=== PATIENT | male | born 1960 | race African-American/Black ===

== ENCOUNTER 2019-07-17 22:37 | Emergency (ER) | payer MEDICARE, MEDICAID ==
[~2019-07-17] VITALS: Ht 180.3 cm; Wt 83.9 kg
[2019-07-18 00:39] LABS: Basophils # (auto) 0 uL; Basophils % (auto) 1.1 % (0.0-2.0); Eosinophils # (auto) 0.1 uL; Eosinophils % (auto) 1.7 % (0.0-7.0); Hematocrit 42.8 % (41.0-53.0); Hemoglobin 14.3 g/dL (13.5-17.5); Lymphocytes # (auto) 1.7 uL; Lymphocytes % (auto) 38.5 % (10.0-50.0); Mean Corpuscular Hemoglobin 34.7 pg (28.0-32.0); Mean Corpuscular Hgb Conc. 33.3 g/dL (32.0-36.0); Mean Corpuscular Volume 104.3 fL (80.0-100.0); Monocytes # (auto) 0.5 uL; Monocytes % (auto) 12.4 % (0.0-12.0); Neutrophils % (auto) 46.3 % (37.0-80.0); Nucleated Red Blood Cells % 0.4 %; Platelet Count (auto) 142 10^3/uL (140-450); Red Cell Distribution Width 14.7 % (11.8-14.3); White Blood Cell 4.3 10^3/uL (4.4-10.8)
[2019-07-18 01:02] LABS: Albumin 3.5 g/dL (3.4-5.0); BUN/Creatinine Ratio 19.9; Potassium 5.3 mmol/L (3.5-5.1)
[2019-07-18 01:04] LABS: Bilirubin, Total 1.1 mg/dL (0.2-1.0); Total Protein 7.1 g/dL (6.4-8.2)
[2019-07-18 01:40] VITALS: BP 116/89
== END 2019-07-18 02:40 | disposition home or self-care (01) ==
LOC: ER 22:39
DX: J18.1 Lobar pneumonia, unspecified organism (principal); E87.6 Hypokalemia; I11.0 Hypertensive heart disease with heart failure; I50.9 Heart failure, unspecified; Z76.0 Encounter for issue of repeat prescription
CPT/HCPCS: 36415; 71046; 80053; 85025

== ENCOUNTER 2019-12-28 17:03 | Inpatient (IN) | payer MEDICARE, MEDICAID ==
[~2019-12-28] VITALS: Ht 180.3 cm; Wt 88.5 kg
[2019-12-28] MEDS ORDERED: FUROSEMIDE 40 MG/4 ML VIAL IV ONE (17:30)
[2019-12-28] MEDS ORDERED: ASPirin 81 mg TAB PO ONE (17:30)
[2019-12-28 18:35] LABS: Basophils # (auto) 0.1 10 ^3/uL (0-0.2); Basophils % (auto) 1.4 % (0.0-2.0); Eosinophils # (auto) 0.1 10 ^3/uL (0-0.8); Eosinophils % (auto) 1.6 % (0.0-7.0); Hematocrit 43.5 % (41.0-53.0); Hemoglobin 14.3 g/dL (13.5-17.5); Lymphocytes # (auto) 1.2 10 ^3/uL (0.4-5.4); Lymphocytes % (auto) 31.2 % (10.0-50.0); Mean Corpuscular Hemoglobin 33.3 pg (28.0-32.0); Mean Corpuscular Hgb Conc. 32.9 g/dL (32.0-36.0); Mean Corpuscular Volume 101.1 fL (80.0-100.0); Monocytes # (auto) 0.5 10 ^3/uL (0-1.3); Monocytes % (auto) 13.9 % (0.0-12.0); Neutrophils % (auto) 51.9 % (37.0-80.0); Nucleated Red Blood Cells % 0.2 %; Platelet Count (auto) 147 10^3/uL (140-450); Red Cell Distribution Width 13.9 % (11.8-14.3); White Blood Cell 3.8 10^3/uL (4.4-10.8)
[2019-12-28 18:54] LABS: Albumin 3.8 g/dL (3.4-5.0); Anion Gap 10 (5-15); Blood Urea Nitrogen 24 mg/dL (7-18); Calcium 8.9 mg/dL (8.5-10.1); Carbon Dioxide 25 mmol/L (21-32); Chloride 106 mmol/L (98-107); Glucose 103 mg/dL (74-106); Potassium 3.7 mmol/L (3.5-5.1); Sodium 141 mmol/L (136-145)
[2019-12-28 18:59] LABS: Alanine Aminotransferase 32 U/L (16-61); Alkaline Phosphatase 99 U/L (45-117); Aspartate Aminotransferase 37 U/L (15-37); BUN/Creatinine Ratio 15.4; Bilirubin, Total 1.7 mg/dL (0.2-1.0); GFR African American 58 mL/min; GFR Non-African American 48 mL/min; Total Protein 7.2 g/dL (6.4-8.2)
[2019-12-28] MEDS ORDERED: NITROGLYCERIN 0.4 MG SL TAB SL PRN (21:30)
[2019-12-28] MEDS ORDERED: ONDANSETRON HCL 4 MG/2 ML VIAL IV PRN (21:30)
[2019-12-28] MEDS ORDERED: MORPHINE SULF INJ 2 MG/ML SYRINGE 1ML IV PRN (21:30)
[2019-12-28] MEDS: FUROSEMIDE 40 MG/4 ML VIAL IV SCH (22:00)
[2019-12-28 23:06] VITALS: BP 116/95
[2019-12-28] MEDS: CARVEDILOL 3.125 MG TAB PO SCH (23:11)
[2019-12-28] MEDS: ATORVASTATIN 20 MG TAB PO SCH (23:12)
[2019-12-28] MEDS: ENOXAPARIN SOD 100 MG/1 ML SYRINGE SC SCH (23:12)
[2019-12-29] VITALS (7 sets, daily range): BP systolic 94–117; BP diastolic 54–87
[2019-12-29] MEDS: ACETAMINOPHEN 325 MG TAB PO PRN ×3 (02:08→22:30)
[2019-12-29] MEDS ORDERED: ALBU108A5 (05:17)
[2019-12-29] MEDS ORDERED: DIGO0.25 (05:17)
[2019-12-29] MEDS ORDERED: LORA-154 (05:17)
[2019-12-29] MEDS ORDERED: SPIR25TA8 (05:17)
[2019-12-29] MEDS ORDERED: HCTZ25T (05:17)
[2019-12-29] MEDS ORDERED: FURO40TA4 (05:17)
[2019-12-29] MEDS ORDERED: ENAL20TA (05:17)
[2019-12-29] MEDS ORDERED: CARV12.544 (05:17)
[2019-12-29] MEDS: ALBUTEROL SULF 2.5 MG/0.5ML(0.5%) NEB SOLN NEB PRN ×2 (07:36→16:36)
[2019-12-29] MEDS: IPRATROPIUM BROM 0.5 MG/2.5ML INH SOL NEB PRN ×2 (07:36→16:36)
[2019-12-29 09:16] LABS: Basophils # (auto) 0.1 10 ^3/uL (0-0.2); Basophils % (auto) 2.9 % (0.0-2.0); Eosinophils # (auto) 0.1 10 ^3/uL (0-0.8); Eosinophils % (auto) 2.7 % (0.0-7.0); Hematocrit 42.6 % (41.0-53.0); Hemoglobin 13.9 g/dL (13.5-17.5); Lymphocytes # (auto) 0.9 10 ^3/uL (0.4-5.4); Lymphocytes % (auto) 27.5 % (10.0-50.0); Mean Corpuscular Hemoglobin 33.1 pg (28.0-32.0); Mean Corpuscular Hgb Conc. 32.6 g/dL (32.0-36.0); Mean Corpuscular Volume 101.5 fL (80.0-100.0); Monocytes # (auto) 0.4 10 ^3/uL (0-1.3); Neutrophils # (auto) 1.8 10 ^3/uL (1.6-8.6); Neutrophils % (auto) 53.9 % (37.0-80.0); Nucleated Red Blood Cells % 0.2 %; Platelet Count (auto) 130 10^3/uL (140-450); White Blood Cell 3.4 10^3/uL (4.4-10.8)
[2019-12-29 09:35] LABS: Calcium 8.6 mg/dL (8.5-10.1); Magnesium 1.7 mg/dL (1.6-2.6); Potassium 3.5 mmol/L (3.5-5.1)
[2019-12-29 09:37] LABS: BUN/Creatinine Ratio 15.9
[2019-12-29] MEDS: ENOXAPARIN SOD 100 MG/1 ML SYRINGE SC SCH ×2 (10:00→22:11)
[2019-12-29] MEDS: FUROSEMIDE 40 MG/4 ML VIAL IV SCH ×2 (10:08→22:10)
[2019-12-29] MEDS: DOCUSATE SOD 100 MG CAP PO SCH (10:08)
[2019-12-29] MEDS: B-COMPLEX W/ C & FOLIC ACID(NEPHROVITE TAB) PO SCH (10:08)
[2019-12-29] MEDS: ASPirin 81 mg TAB PO SCH (10:08)
[2019-12-29] MEDS: CARVEDILOL 3.125 MG TAB PO SCH ×2 (10:09→22:11)
[2019-12-29] MEDS: LISINOPRIL 10 MG TAB PO SCH (10:09)
[2019-12-29] MEDS: CLOPIDOGREL BISULFATE 75 MG TAB PO SCH (10:10)
[2019-12-29] MEDS ORDERED: HCTZ 25 MG TAB PO ONE (11:45)
[2019-12-29] MEDS ORDERED: DIGOXIN 0.25 MG TAB PO ONE (11:45)
[2019-12-29] MEDS: ATORVASTATIN 20 MG TAB PO SCH (22:11)
[2019-12-29] MEDS: guaiFENesin-DM 100/10mg/5ml SYR PO PRN (22:11)
[2019-12-30] MEDS: guaiFENesin-DM 100/10mg/5ml SYR PO PRN ×3 (04:14→23:09)
[2019-12-30 05:00] VITALS: BP 110/79
[2019-12-30 09:00] VITALS: BP 108/86
[2019-12-30] MEDS: FUROSEMIDE 40 MG/4 ML VIAL IV SCH ×2 (09:42→21:03)
[2019-12-30] MEDS: ASPirin 81 mg TAB PO SCH (09:42)
[2019-12-30] MEDS: SPIRONOLACTONE 25 MG TAB PO SCH (09:42)
[2019-12-30] MEDS: DOCUSATE SOD 100 MG CAP PO SCH (09:43)
[2019-12-30] MEDS: CARVEDILOL 3.125 MG TAB PO SCH ×2 (09:43→21:02)
[2019-12-30] MEDS: POTASSIUM CHL 20 Meq TABLET PO SCH (09:44)
[2019-12-30] MEDS: CLOPIDOGREL BISULFATE 75 MG TAB PO SCH (09:45)
[2019-12-30] MEDS: DIGOXIN 0.25 MG TAB PO SCH (09:45)
[2019-12-30] MEDS: ENOXAPARIN SOD 100 MG/1 ML SYRINGE SC SCH ×2 (09:45→21:03)
[2019-12-30] MEDS: B-COMPLEX W/ C & FOLIC ACID(NEPHROVITE TAB) PO SCH (09:45)
[2019-12-30] MEDS: LISINOPRIL 10 MG TAB PO SCH (09:45)
[2019-12-30] MEDS ORDERED: HCTZ 25 MG TAB PO SCH (10:00)
[2019-12-30 13:00] VITALS: BP 108/65
[2019-12-30] MEDS ORDERED: ACETYLCYSTEINE ORAL for CIN 20%(200MG/ML) 4ML PO ONE (13:00)
[2019-12-30 17:23] VITALS: BP 109/75
[2019-12-30] MEDS: IPRATROPIUM BROM 0.5 MG/2.5ML INH SOL NEB PRN (19:41)
[2019-12-30] MEDS: ALBUTEROL SULF 2.5 MG/0.5ML(0.5%) NEB SOLN NEB PRN (19:41)
[2019-12-30] MEDS: ATORVASTATIN 20 MG TAB PO SCH (21:02)
[2019-12-30] MEDS: ACETYLCYSTEINE ORAL for CIN 20%(200MG/ML) 4ML PO SCH (21:16)
[2019-12-30 22:00] VITALS: BP 104/84
[2019-12-30] MEDS: ACETAMINOPHEN 325 MG TAB PO PRN (23:09)
[2019-12-31] VITALS (7 sets, daily range): BP systolic 107–142; BP diastolic 64–91
[2019-12-31 06:10] LABS: Basophils # (auto) 0 10 ^3/uL (0-0.2); Basophils % (auto) 1.1 % (0.0-2.0); Eosinophils # (auto) 0.1 10 ^3/uL (0-0.8); Eosinophils % (auto) 2.9 % (0.0-7.0); Hematocrit 40.7 % (41.0-53.0); Hemoglobin 13.3 g/dL (13.5-17.5); Lymphocytes # (auto) 1.1 10 ^3/uL (0.4-5.4); Lymphocytes % (auto) 30.1 % (10.0-50.0); Mean Corpuscular Hgb Conc. 32.8 g/dL (32.0-36.0); Mean Corpuscular Volume 100.7 fL (80.0-100.0); Monocytes # (auto) 0.6 10 ^3/uL (0-1.3); Monocytes % (auto) 16.1 % (0.0-12.0); Neutrophils # (auto) 1.7 10 ^3/uL (1.6-8.6); Neutrophils % (auto) 49.8 % (37.0-80.0); Nucleated Red Blood Cells % 0.2 %; Platelet Count (auto) 134 10^3/uL (140-450); Red Blood Cells 4.04 10^6/uL (4.5-5.90); Red Cell Distribution Width 14.1 % (11.8-14.3); White Blood Cell 3.5 10^3/uL (4.4-10.8)
[2019-12-31 06:26] LABS: INR 1.49 (0.9-1.15); Partial Thromboplastin Time 33.5 sec (23.64-32.05)
[2019-12-31 06:37] LABS: Potassium 3.7 mmol/L (3.5-5.1)
[2019-12-31 06:46] LABS: BUN/Creatinine Ratio 17.4; Calcium 8.9 mg/dL (8.5-10.1)
[2019-12-31] MEDS: ENOXAPARIN SOD 100 MG/1 ML SYRINGE SC SCH (08:20)
[2019-12-31] MEDS: ACETYLCYSTEINE ORAL for CIN 20%(200MG/ML) 4ML PO SCH ×2 (09:37→21:36)
[2019-12-31] MEDS: DIGOXIN 0.25 MG TAB PO SCH (09:39)
[2019-12-31] MEDS: POTASSIUM CHL 20 Meq TABLET PO SCH (09:39)
[2019-12-31] MEDS: ASPirin 81 mg TAB PO SCH (09:39)
[2019-12-31] MEDS: B-COMPLEX W/ C & FOLIC ACID(NEPHROVITE TAB) PO SCH (09:39)
[2019-12-31] MEDS: CLOPIDOGREL BISULFATE 75 MG TAB PO SCH (09:39)
[2019-12-31] MEDS: CARVEDILOL 3.125 MG TAB PO SCH ×2 (09:40→21:35)
[2019-12-31] MEDS: DOCUSATE SOD 100 MG CAP PO SCH (09:44)
[2019-12-31] MEDS: SPIRONOLACTONE 25 MG TAB PO SCH (09:46)
[2019-12-31] MEDS: FUROSEMIDE 40 MG/4 ML VIAL IV SCH ×2 (09:47→17:25)
[2019-12-31] MEDS ORDERED: LIDOCAINE 2%HCL (LOCAL ANESTH.) INJ 20ML MDV ONE (13:51)
[2019-12-31] MEDS ORDERED: IOHEXOL 350 MG/ML 100ML IJ ONE (13:51)
[2019-12-31] MEDS ORDERED: ANGIOMAX 250 MG VIAL IV ONE (13:55)
[2019-12-31] MEDS ORDERED: fentaNYL CITRATE 100 MCG/2 ML VL ONE (13:56)
[2019-12-31] MEDS ORDERED: SODIUM CHL 0.9% 0 ML ONE (13:56)
[2019-12-31] MEDS ORDERED: MIDAZOLAM HCL 1MG/1ML-2 ML VIAL ONE (13:56)
[2019-12-31] MEDS ORDERED: ACETAMINOPHEN 500 MG TAB PO PRN (14:45)
[2019-12-31] MEDS ORDERED: ONDANSETRON HCL 4 MG/2 ML VIAL IV PRN (14:45)
[2019-12-31] MEDS: HYDROcodone-ACET 5/325MG TAB PO PRN (18:33)
[2019-12-31] MEDS: ATORVASTATIN 20 MG TAB PO SCH (21:35)
[2019-12-31] MEDS: SODIUM CHLOR 0.9% PF (SALINE LOCK) 10ML VIAL/SYR IV SCH (21:36)
[2019-12-31] MEDS: guaiFENesin-DM 100/10mg/5ml SYR PO PRN (23:08)
[2020-01-01] MEDS: HYDROcodone-ACET 5/325MG TAB PO PRN (00:20)
[2020-01-01 05:00] VITALS: BP 100/49
[2020-01-01] MEDS: SODIUM CHLOR 0.9% PF (SALINE LOCK) 10ML VIAL/SYR IV SCH ×2 (05:34→14:00)
[2020-01-01] MEDS: FUROSEMIDE 40 MG/4 ML VIAL IV SCH (05:34)
[2020-01-01 09:07] VITALS: BP 120/77
[2020-01-01] MEDS: CARVEDILOL 3.125 MG TAB PO SCH (10:07)
[2020-01-01] MEDS: B-COMPLEX W/ C & FOLIC ACID(NEPHROVITE TAB) PO SCH (10:07)
[2020-01-01] MEDS: DIGOXIN 0.25 MG TAB PO SCH (10:07)
[2020-01-01] MEDS: DOCUSATE SOD 100 MG CAP PO SCH (10:08)
[2020-01-01] MEDS: SPIRONOLACTONE 25 MG TAB PO SCH (10:08)
[2020-01-01] MEDS: POTASSIUM CHL 20 Meq TABLET PO SCH (10:08)
[2020-01-01 12:05] LABS: BUN/Creatinine Ratio 16.3; Potassium 3.7 mmol/L (3.5-5.1)
[2020-01-01 13:49] VITALS: BP 114/85
== END 2020-01-01 16:50 | disposition home or self-care (01) | DRG 286 ==
LOC: ER 17:03 → TELE 17:04 → TELE-CENTR 12-29 02:22
PROVIDERS: ADMIT Hospitalist; ATTEND Family Medicine
PROC: B2111ZZ Fluoroscopy of Multiple Coronary Arteries using Low Osmolar Contrast (ICD-10-PCS; principal; 2019-12-31)
PROC: 4A023N7 Measurement of Cardiac Sampling and Pressure, Left Heart, Percutaneous Approach (ICD-10-PCS; 2019-12-31)
PROC: B2151ZZ Fluoroscopy of Left Heart using Low Osmolar Contrast (ICD-10-PCS; 2019-12-31)
DX: I11.0 Hypertensive heart disease with heart failure (principal); I26.99 Other pulmonary embolism without acute cor pulmonale; N17.9 Acute kidney failure, unspecified; D68.69 Other thrombophilia; I50.23 Acute on chronic systolic (congestive) heart failure; D53.9 Nutritional anemia, unspecified; E78.5 Hyperlipidemia, unspecified; F12.90 Cannabis use, unspecified, uncomplicated; Z20.828 Contact with and (suspected) exposure to other viral communicable diseases; Z79.01 Long term (current) use of anticoagulants; Z91.19 Patient's noncompliance with other medical treatment and regimen
CPT/HCPCS: 36415; 71045; 78582; 80048; 80053; 80061; 83735; 83880; 84484; 85025; 85379; 85610; 85730; 93005; 93306; 93458; 93970; 94640; 99152; 99291; G0378; J2250; J7060

== ENCOUNTER → 2020-01-08 | Outpatient (CLI) | payer MEDICARE, MEDICAID ==
[~2020-01-08] MED LIST: ALBU108A5; CARV12.544; DIGO0.25; ENAL20TA; FURO40TA4; HCTZ25T; LORA-154; SPIR25TA8
[2020-01-08 09:39] LABS: BUN/Creatinine Ratio 19.8; Potassium 4.3 mmol/L (3.5-5.1)
== END | disposition home or self-care (01) ==
LOC: LAB 08:57
PROVIDERS: ATTEND Internal Medicine
DX: I10 Essential (primary) hypertension (principal)
CPT/HCPCS: 36415; 80048

== ENCOUNTER → 2020-01-14 | Outpatient (CLI) | payer MEDICARE, MEDICAID | END | disposition home or self-care (01) | LOC: Rad HDHVI 12:58 | PROVIDERS: ATTEND Internal Medicine Cardiovascular Disease | DX: I50.9 Heart failure, unspecified (principal); I10 Essential (primary) hypertension; I42.9 Cardiomyopathy, unspecified | CPT/HCPCS: 93306 ==

== ENCOUNTER → 2020-02-01 | Outpatient (CLI) | payer MEDICARE, MEDICAID ==
[~2020-02-01] MED LIST changes: +ALBUAER3 IN; +CARV12.544 PO; +DIGO0.25 PO; +ENAL20TA93 PO; +FURO40TA4 PO; +HYDR25TA4 PO; +SPIR25TA8 PO
[2020-02-01 11:15] VITALS: BP 112/77
[2020-02-01 11:48] VITALS: BP 116/79
--- NOTE | 2020-02-01 11:48 | NUR ---
Pre-Op Discharge Summary: See e-MAR for any medications given for this visit. Pre-op orders received and carried out per MD of EKG, LABS and chest xrays. Patient given a copy of EKG with instructions to go to [facility] out patient for further follow up care.
[2020-02-01 15:53] LABS: Basophils # (auto) 0 10 ^3/uL (0-0.2); Basophils % (auto) 0.7 % (0.0-2.0); Eosinophils # (auto) 0.1 10 ^3/uL (0-0.8); Eosinophils % (auto) 2.3 % (0.0-7.0); Hematocrit 40.7 % (41.0-53.0); Hemoglobin 13.4 g/dL (13.5-17.5); Lymphocytes # (auto) 1.3 10 ^3/uL (0.4-5.4); Lymphocytes % (auto) 40.6 % (10.0-50.0); Mean Corpuscular Hemoglobin 31.6 pg (28.0-32.0); Mean Corpuscular Hgb Conc. 32.8 g/dL (32.0-36.0); Mean Corpuscular Volume 96.2 fL (80.0-100.0); Monocytes # (auto) 0.3 10 ^3/uL (0-1.3); Monocytes % (auto) 9.7 % (0.0-12.0); Neutrophils # (auto) 1.4 10 ^3/uL (1.6-8.6); Neutrophils % (auto) 46.7 % (37.0-80.0); Nucleated Red Blood Cells % 0.1 %; Platelet Count (auto) 150 10^3/uL (140-450); Red Blood Cells 4.23 10^6/uL (4.5-5.90); Red Cell Distribution Width 14.5 % (11.8-14.3); White Blood Cell 3.1 10^3/uL (4.4-10.8)
[2020-02-01 15:59] LABS: BUN/Creatinine Ratio 19.5; Potassium 3.8 mmol/L (3.5-5.1)
[2020-02-01 16:13] LABS: INR 1.02 (0.9-1.15); Partial Thromboplastin Time 27.3 sec (23.0-31.2)
== END | disposition home or self-care (01) ==
LOC: Rad HDHVI 11:06
PROVIDERS: ATTEND Internal Medicine Cardiovascular Disease
DX: Z01.812 Encounter for preprocedural laboratory examination (principal); I10 Essential (primary) hypertension; D64.9 Anemia, unspecified; R79.1 Abnormal coagulation profile
CPT/HCPCS: 36415; 71046; 80048; 85025; 85610; 85730; 93005; G0463

== ENCOUNTER 2020-02-07 09:30 | Inpatient (IN) | payer MEDICARE, MEDICAID ==
[~2020-02-07] VITALS: Ht 180.3 cm; Wt 81.4 kg
[~2020-02-07 09:30] MED LIST changes: -ALBU108A5; -CARV12.544; -DIGO0.25; -ENAL20TA; -FURO40TA4; -HCTZ25T; -LORA-154; -SPIR25TA8
[2020-02-07] MEDS ORDERED: VANCOMYCIN 1GM/250ML 250 ML IV ONE ×2 (10:09→10:15)
[2020-02-07] MEDS ORDERED: IOHEXOL 350 MG/ML 100ML IJ ONE (12:44)
[2020-02-07] MEDS ORDERED: LIDOCAINE 2%HCL (LOCAL ANESTH.) INJ 20ML MDV ONE (12:44)
[2020-02-07] MEDS ORDERED: fentaNYL CITRATE 100 MCG/2 ML VL ONE ×2 (12:55→13:50)
[2020-02-07] MEDS ORDERED: MIDAZOLAM HCL 1MG/1ML-2 ML VIAL ONE (12:55)
[2020-02-07] MEDS ORDERED: VANCOMYCIN HCL 1000 MG VL ONE (12:55)
[2020-02-07] MEDS ORDERED: ceFAZolin 1GM/50ML 50 ML IV ONE (13:44)
[2020-02-07] MEDS ORDERED: ALBUTEROL SULF 2.5 MG/0.5ML(0.5%) NEB SOLN NEB PRN (14:30)
[2020-02-07] MEDS ORDERED: ACETAMINOPHEN 325 MG TAB PO PRN (14:30)
[2020-02-07] MEDS ORDERED: NITROGLYCERIN 0.4 MG SL TAB SL PRN (14:30)
[2020-02-07] MEDS ORDERED: ONDANSETRON HCL 4 MG/2 ML VIAL IV PRN (14:30)
[2020-02-07] MEDS ORDERED: MORPHINE SULF INJ 2 MG/ML SYRINGE 1ML IV PRN (14:30)
[2020-02-07] MEDS: ceFAZolin 1GM/50ML 50 ML IV SCH ×2 (15:51→21:43)
[2020-02-07] MEDS: HYDROcodone-ACET 5/325MG TAB PO PRN ×2 (16:53→21:42)
--- NOTE | 2020-02-07 17:00 | NUR ---
Telemetry admit from medical lab scientist KAYLI COOL admitted to Telemetry unit after SBAR received. Patient oriented to Becky Andrade primary RN, unit, room, bed, and unit policies regarding patient care and visiting hours. Patient now on continuous telemetry monitoring, tele box #[id number] and telemetry reading on arrival to unit is SR 80's. Patient weighed by bed scale. Instructed patient on POC, fall precautions and to call for assistance as needed. Patient verbalized understanding. Dressing to the left upper chest is clean, dry and intact with no bleeding or swelling noted. Left arm in a sling with an ice pack placed to the left upper chest per MD order.
--- NOTE | 2020-02-07 18:28 | NUR ---
Dressing to the left upper chest is clean, dry and intact. No bleeding or swelling noted. Left arm in sling with ice pack in place to left upper chest per MD order.
[2020-02-07] MEDS ORDERED: IBUP1CAP5 PO (18:51)
--- NOTE | 2020-02-07 18:58 | NUR ---
Closing note Patient resting in bed with even and unlabored respirations, no distress noted. Fall precautions in place with call light within reach. Dressing to the left upper chest is clean, dry and intact with no bleeding or swelling noted. Left arm in a sling and ice pack to the left upper chest per MD order.
--- NOTE | 2020-02-07 19:30 | NUR ---
Care endorsed to MARIANA Shore.
--- NOTE | 2020-02-07 20:00 | NUR ---
Opening Shift Note Assumed care of patient. Awake, alert and oriented x4. No S/S of distress or SOB. Pt reporting pain in left shoulder from procedure. Ice pack in place. Will continue to monitor. Pt is on room air with even and unlabored respirations. Instructed on POC and to call for assist PRN. Bed locked, in lowest position, call light within reach, side rails up x2. Will continue to monitor for changes Q1hr and PRN.
[2020-02-07] MEDS: CARVEDILOL 12.5 MG TAB PO SCH (21:43)
[2020-02-07 22:00] VITALS: BP 123/82
[2020-02-07 23:44] VITALS: BP 123/82
[2020-02-08 04:37] VITALS: BP 121/81
[2020-02-08] MEDS: ceFAZolin 1GM/50ML 50 ML IV SCH (06:14)
[2020-02-08] MEDS ORDERED: FUROSEMIDE 40 MG TAB PO SCH (07:00)
--- NOTE | 2020-02-08 08:00 | NUR ---
Morning note Patient resting in bed with even and unlabored respirations on room air, no distress noted. Dressing to left upper chest is clean, dry and intact with no swelling or bleeding noted. Left arm in a sling with ice pack to the left upper chest per MD order. Instructed patient on POC, fall precautions and to call for assistance as needed. patient verbalized understanding. Fall precautions in place with call light within reach.
--- NOTE | 2020-02-08 08:24 | NUR ---
Family called for an update Patient's daughter, Izzy, called for an update. Password obtained. Update provided. Informed patient's daughter of discharge and transportation need. Izzy verbalized understanding. ETA 2.5 hours.
[2020-02-08] MEDS: CARVEDILOL 12.5 MG TAB PO SCH (08:49)
[2020-02-08 09:00] VITALS: BP 122/87
[2020-02-08] MEDS ORDERED: SPIRONOLACTONE 25 MG TAB PO SCH (10:00)
[2020-02-08] MEDS ORDERED: ENALAPRIL MALEATE 10 MG TAB PO SCH (10:00)
[2020-02-08] MEDS ORDERED: DIGOXIN 0.25 MG TAB PO SCH (10:00)
[2020-02-08] MEDS ORDERED: HCTZ 25 MG TAB PO SCH (10:00)
--- NOTE | 2020-02-08 10:19 | NUR ---
Patient okay to be discharged per Dr. Plata Order received and read back to verify.
--- NOTE | 2020-02-08 11:15 | NUR ---
Discharge Discharge education and paperwork provided to the patient per MD order. Patient verbalized understanding. IV removed with aseptic technique, catheter intact. Dressing applied. Patient tolerated well, no trauma to site. Telemonitor removed and returned. Patient reports having all personal belongings. Respirations even and unlabored on room air, no distress noted. Dressing to the left upper chest is clean, dry and intact with no bleeding or swelling noted. Patient to notify staff once transportation arrives.
--- NOTE | 2020-02-08 12:11 | NUR ---
Transportation arrived to hospital Patient refused wheelchair. Patient ambulated with steady gait to private vehicle accompanied by a staff member. Respirations even and unlabored, no distress noted. Patient reports having all personal belongings. Dressing to the left upper chest is clean, dry and intact with no bleeding or swelling noted.
== END 2020-02-08 12:11 | disposition home or self-care (01) | DRG 226 ==
LOC: CATH 09:30 → TELE 17:18 → TELE-WESTW 18:28
PROVIDERS: ADMIT Internal Medicine Cardiovascular Disease; ATTEND Internal Medicine Cardiovascular Disease
PROC: 0JH609Z Insertion of Cardiac Resynchronization Defibrillator Pulse Generator into Chest Subcutaneous Tissue and Fascia, Open Approach (ICD-10-PCS; principal; 2020-02-07)
PROC: 02HK3KZ Insertion of Defibrillator Lead into Right Ventricle, Percutaneous Approach (ICD-10-PCS; 2020-02-07)
PROC: 02HL3KZ Insertion of Defibrillator Lead into Left Ventricle, Percutaneous Approach (ICD-10-PCS; 2020-02-07)
PROC: 02H63KZ Insertion of Defibrillator Lead into Right Atrium, Percutaneous Approach (ICD-10-PCS; 2020-02-07)
DX: I42.0 Dilated cardiomyopathy (principal); I50.23 Acute on chronic systolic (congestive) heart failure; I45.9 Conduction disorder, unspecified; E78.5 Hyperlipidemia, unspecified; Z11.59 Encounter for screening for other viral diseases; I25.2 Old myocardial infarction
CPT/HCPCS: 33225; 33249; 71045; 93005; 99152; 99153; G0378; J0690; J2250

== ENCOUNTER → 2020-03-18 | Outpatient (CLI) | payer MEDICARE, MEDICAID ==
[~2020-03-18] MED LIST changes: +IBUP1CAP5 PO
== END | disposition home or self-care (01) ==
LOC: Rad HDHVI 15:08
PROVIDERS: ATTEND Internal Medicine Cardiovascular Disease
DX: I50.23 Acute on chronic systolic (congestive) heart failure (principal); I42.0 Dilated cardiomyopathy
CPT/HCPCS: 93306

== ENCOUNTER 2020-09-17 15:29 | Inpatient (IN) | payer OTHER, MEDICAID ==
[~2020-09-17] VITALS: Ht 180.3 cm; Wt 81.9 kg
[2020-09-17 16:17] LABS: Basophils # (auto) 0 10 ^3/uL (0-0.2); Eosinophils # (auto) 0 10 ^3/uL (0-0.8); Lymphocytes # (auto) 0.8 10 ^3/uL (0.4-5.4); Monocytes # (auto) 0.3 10 ^3/uL (0-1.3); Neutrophils # (auto) 2.2 10 ^3/uL (1.6-8.6); Neutrophils % (auto) 65.7 % (37.0-80.0); White Blood Cell 3.3 10^3/uL (4.4-10.8)
[2020-09-17 16:19] LABS: Basophils % (auto) 1.2 % (0.0-2.0); Eosinophils % (auto) 0.7 % (0.0-7.0); Hematocrit 40.9 % (41.0-53.0); Lymphocytes % (auto) 23.8 % (10.0-50.0); Mean Corpuscular Hemoglobin 36.9 pg (28.0-32.0); Mean Corpuscular Hgb Conc. 34.3 g/dL (32.0-36.0); Mean Corpuscular Volume 107.5 fL (80.0-100.0); Monocytes % (auto) 8.6 % (0.0-12.0); Nucleated Red Blood Cells % 0.2 %; Platelet Count (auto) 196 10^3/uL (140-450)
[2020-09-17 16:29] LABS: Anion Gap 11 (5-15); Blood Urea Nitrogen 23 mg/dL (7-18); Carbon Dioxide 23 mmol/L (21-32); Chloride 105 mmol/L (98-107); Glucose 134 mg/dL (74-106); Potassium 4.2 mmol/L (3.5-5.1); Sodium 139 mmol/L (136-145)
[2020-09-17 16:32] LABS: Alanine Aminotransferase 41 U/L (16-61); Aspartate Aminotransferase 54 U/L (15-37); BUN/Creatinine Ratio 15.3; GFR African American 61 mL/min; GFR Non-African American 50 mL/min
[2020-09-17 16:53] LABS: Alkaline Phosphatase 106 U/L (45-117); Bilirubin, Total 0.6 mg/dL (0.2-1.0); Total Protein 8.7 g/dL (6.4-8.2)
[2020-09-17 17:49] LABS: INR 1.02 (0.9-1.15); Partial Thromboplastin Time 26.3 sec (23.0-31.2)
[2020-09-17] MEDS ORDERED: METOPROLOL TARTRATE 25 MG TAB PO SCH ×2 (18:30→22:00)
[2020-09-17] MEDS ORDERED: NITROGLYCERIN 0.4 MG SL TAB SL PRN (18:30)
[2020-09-17] MEDS ORDERED: ACETAMINOPHEN 500 MG TAB PO PRN (18:30)
[2020-09-17] MEDS ORDERED: ONDANSETRON HCL 4 MG/2 ML VIAL IV PRN (18:30)
[2020-09-17] MEDS ORDERED: MORPHINE SULF INJ 2 MG/ML SYRINGE 1ML IV PRN ×2 (18:30)
[2020-09-17] MEDS ORDERED: HYDROcodone-ACET 5/325MG TAB PO PRN (18:30)
[2020-09-17 19:08] LABS: CRP High Sensitivity 0.32 mg/dL (< 0.3)
[2020-09-17 20:56] VITALS: BP 145/91
[2020-09-17 22:00] VITALS: BP 145/91
[2020-09-17] MEDS ORDERED: ATORVASTATIN 20 MG TAB PO SCH (22:00)
[2020-09-17] MEDS: CARVEDILOL 12.5 MG TAB PO SCH (22:32)
[2020-09-18] MEDS ORDERED: diphenhdrAMINE HCL 50 MG/1 ML VL IV ONE ×3 (01:00→06:45)
[2020-09-18] MEDS ORDERED: FAMOTIDINE (10MG/ML) 2ML VL IV ONE ×2 (01:00→06:45)
[2020-09-18] MEDS ORDERED: ACETAMINOPHEN 650 mg PER 20.3 mL UD PO ONE (03:15)
[2020-09-18] MEDS ORDERED: methylPREDNISolone SOD SUCC 125 MG/2 ML VL IV ONE (03:15)
[2020-09-18] MEDS ORDERED: ACETAMINOPHEN 325 MG TAB PO ONE (03:30)
[2020-09-18] MEDS ORDERED: FURO40TA4 PO (04:20)
[2020-09-18 05:00] VITALS: BP 123/84
[2020-09-18] MEDS ORDERED: EPINEPHrine HCL 1 MG/1 ML AMP SC ONE (06:45)
[2020-09-18] MEDS ORDERED: SODIUM CHLORIDE 0.9% 1,000 ML IV ONE (06:45)
[2020-09-18] MEDS: ASPirin-EC 81 mg tab PO SCH (08:50)
[2020-09-18] MEDS: CARVEDILOL 12.5 MG TAB PO SCH ×2 (08:51→22:24)
[2020-09-18] MEDS: FUROSEMIDE 20 MG TAB PO SCH (08:51)
[2020-09-18 09:00] VITALS: BP 144/95
[2020-09-18] MEDS ORDERED: FAMOTIDINE 20 MG TAB PO SCH (10:00)
[2020-09-18 13:00] VITALS: BP 145/97
[2020-09-18] MEDS: methylPREDNISolone SOD SUCC 40 MG/ML VL IV SCH ×2 (13:42→22:23)
[2020-09-18 16:35] VITALS: BP 137/90
[2020-09-18 22:00] VITALS: BP 144/79
[2020-09-19 05:00] VITALS: BP 146/87
[2020-09-19] MEDS: methylPREDNISolone SOD SUCC 40 MG/ML VL IV SCH (06:05)
[2020-09-19 09:00] VITALS: BP 151/90
[2020-09-19] MEDS: FUROSEMIDE 20 MG TAB PO SCH (09:09)
[2020-09-19] MEDS: CARVEDILOL 12.5 MG TAB PO SCH (09:10)
[2020-09-19] MEDS: ASPirin-EC 81 mg tab PO SCH (09:11)
[2020-09-19] MEDS ORDERED: FAMOTIDINE 20 MG TAB PO SCH (10:00)
[2020-09-19 10:43] LABS: Calcium 9.3 mg/dL (8.5-10.1); Potassium 3.7 mmol/L (3.5-5.1)
[2020-09-19 10:46] LABS: BUN/Creatinine Ratio 20.1
[2020-09-19 11:05] VITALS: BP 151/90
== END 2020-09-19 11:47 | disposition home or self-care (01) | DRG 315 ==
LOC: ER 15:29 → TELE 18:26 → TELE-WESTW 20:54
PROVIDERS: ADMIT Nurse Practitioner Acute Care; ATTEND Internal Medicine
PROC: 4B02XTZ Measurement of Cardiac Defibrillator, External Approach (ICD-10-PCS; principal; 2020-09-17)
DX: T82.118A Breakdown (mechanical) of other cardiac electronic device, initial encounter (principal); I50.22 Chronic systolic (congestive) heart failure; I47.1 Supraventricular tachycardia; I24.8 Other forms of acute ischemic heart disease; I25.5 Ischemic cardiomyopathy; E78.5 Hyperlipidemia, unspecified; D72.819 Decreased white blood cell count, unspecified; Z20.822 Contact with and (suspected) exposure to COVID-19; N28.9 Disorder of kidney and ureter, unspecified; Y71.2 Prosthetic and other implants, materials and accessory cardiovascular devices associated with adverse incidents; I11.0 Hypertensive heart disease with heart failure; I25.10 Atherosclerotic heart disease of native coronary artery without angina pectoris; Z79.899 Other long term (current) drug therapy; Z82.49 Family history of ischemic heart disease and other diseases of the circulatory system; Z95.810 Presence of automatic (implantable) cardiac defibrillator; Z87.442 Personal history of urinary calculi; Y92.89 Other specified places as the place of occurrence of the external cause; T78.40XA Allergy, unspecified, initial encounter; T46.6X5A Adverse effect of antihyperlipidemic and antiarteriosclerotic drugs, initial encounter; Y92.239 Unspecified place in hospital as the place of occurrence of the external cause
CPT/HCPCS: 36415; 71045; 80048; 80053; 80061; 83735; 83880; 84484; 85025; 85610; 85730; 86141; 87426; 93005; G0378; J0171; J3490

== ENCOUNTER → 2021-09-01 | Outpatient (CLI) | payer OTHER, MEDICAID ==
[~2021-09-01] MED LIST changes: -ALBUAER3 IN; -ENAL20TA93 PO; -IBUP1CAP5 PO; -SPIR25TA8 PO
== END | disposition home or self-care (01) ==
LOC: Rad HDHVI 10:47
PROVIDERS: ATTEND Internal Medicine Cardiovascular Disease
DX: I34.0 Nonrheumatic mitral (valve) insufficiency (principal)
CPT/HCPCS: 93306

== ENCOUNTER → 2025-05-15 | Outpatient (CLI) | payer OTHER, MEDICAID ==
[2025-05-15 15:16] LABS: Hematocrit 37.3 % (41.0-53.0); Nucleated Red Blood Cells % 0.1 %
[2025-05-15 15:18] LABS: Hemoglobin 12.6 g/dL (13.5-17.5); Mean Corpuscular Hemoglobin 35.3 pg (28.0-32.0); Mean Corpuscular Volume 104.3 fL (80.0-100.0)
[2025-05-15 15:34] LABS: Alanine Aminotransferase 31 U/L (7-40); Albumin 4.3 g/dL (3.2-4.8); Alkaline Phosphatase 90 U/L (46-116); Anion Gap 14 (5-15); BUN/Creatinine Ratio 14.3 (10.0-20.0); Bilirubin, Total 0.5 mg/dL (0.2-1.0); Blood Urea Nitrogen 23 mg/dL (9-23); Calcium 9.7 mg/dL (8.7-10.4); Carbon Dioxide 25 mmol/L (20-31); Chloride 104 mmol/L (98-107); Cholesterol 189 mg/dL (< 200); Glucose 86 mg/dL (74-106); Potassium 4.6 mmol/L (3.5-5.1); Sodium 143 mmol/L (136-145); Total Protein 7.4 g/dL (5.7-8.2); Triglycerides 63 mg/dL (< 150)
[2025-05-15 15:41] LABS: HDL Cholesterol 94 mg/dL (40-59)
== END | disposition home or self-care (01) ==
LOC: LAB 14:34
PROVIDERS: ATTEND Internal Medicine
DX: I11.0 Hypertensive heart disease with heart failure (principal); I50.9 Heart failure, unspecified; E78.5 Hyperlipidemia, unspecified; Z12.11 Encounter for screening for malignant neoplasm of colon; Z00.00 Encounter for general adult medical examination without abnormal findings; Z79.899 Other long term (current) drug therapy
CPT/HCPCS: 36415; 80053; 80061; 83036; 84153; 84443; 85025